=== PATIENT | male | born 1960 | race Caucasian/White ===

== ENCOUNTER 2023-02-13 13:36 | Inpatient (IN) | payer OTHER ==
[2023-02-13 13:55] VITALS: BMI 39.2
[2023-02-13] MEDS ORDERED: BENZOCAINE/MENTHOL (CHLORASEPTIC ) LOZENGE MM PRN (16:49)
[2023-02-13] MEDS ORDERED: ONDANSETRON *ODT* 4 MG TABLET SL PRN (16:49)
[2023-02-13] MEDS ORDERED: DICYCLOMINE HCL 10 MG CAPSULE PO PRN (16:49)
[2023-02-13] MEDS ORDERED: guaiFENesin 600 MG TABLET.ER (FP) PO PRN (16:49)
[2023-02-13] MEDS ORDERED: BISMUTH SUBSALICYLATE 524 MG/30 ML PO PRN (16:49)
[2023-02-13] MEDS ORDERED: MAG HYDROX/AL HYDROX/SIMETH 30 ML UNIT-DOSE CUP PO PRN (16:49)
[2023-02-13] MEDS ORDERED: IBUPROFEN 600 MG TABLET (FP) PO PRN (16:49)
[2023-02-13] MEDS ORDERED: POLYETHYLENE GLYCOL (HEALTHYLAX) 3350 17 GM PACKET PO PRN (16:49)
[2023-02-13] MEDS ORDERED: LOPERAMIDE HCL 2 MG CAPSULE PO PRN (16:49)
[2023-02-13] MEDS ORDERED: IBUPROFEN 400 MG TABLET (FP) PO PRN (16:49)
[2023-02-13] MEDS ORDERED: MAGNESIUM HYDROX 2400MG/30ML ORAL SUSPENSION 30 ML CUP PO PRN (16:49)
[2023-02-13] MEDS ORDERED: BENZONATATE 200 MG CAPSULE PO PRN (16:49)
[2023-02-13] MEDS ORDERED: P-EPHED 60MG/TRIPROLIDI 2.5MG TABLET PO PRN (16:49)
[2023-02-13] MEDS ORDERED: MELATONIN 5 MG TABLETS PO SCH (22:00)
[2023-02-13] MEDS: ATORVASTATIN CA 80 MG TABLET (FP) PO SCH (22:26)
[2023-02-13] MEDS: THIAMINE HCL 100 MG TABLET (FP) PO SCH (22:26)
[2023-02-13] MEDS: CARVEDILOL 6.25 MG TABLET (FP) PO SCH (22:26)
[2023-02-13] MEDS: RANOLAZINE E.R. 500 MG TABLET (FP) PO SCH (23:33)
[2023-02-14] MEDS: hydrOXYzine PAMOATE 25 MG CAPSULE (FP) PO PRN ×2 (05:24→22:22)
[2023-02-14] MEDS ORDERED: methaDONE HCL 40 MG DISPERSABLE TABLET PO SCH (07:30)
[2023-02-14] MEDS: methaDONE 80 MG, methaDONE 20 MG PO SCH (07:54)
[2023-02-14] MEDS ORDERED: diazePAM 5 MG TABLET PO PRN ×2 (09:27→09:30)
[2023-02-14] MEDS: diazePAM 5 MG TABLET PO SCH ×3 (10:29→22:24)
[2023-02-14] MEDS: PRENATAL VITAMINS W/ FOLIC ACID TABLET (FP) PO SCH (10:30)
[2023-02-14] MEDS: amLODIPine BESYLATE 10 MG TABLET (FP) PO SCH (10:30)
[2023-02-14] MEDS: CLOPIDOGREL BISULFATE 75 MG TABLET (FP) PO SCH (10:30)
[2023-02-14] MEDS: RANOLAZINE E.R. 500 MG TABLET (FP) PO SCH ×2 (10:30→22:21)
[2023-02-14] MEDS: ISOSORBIDE MONONITRATE 60 MG TAB.SR.24H (FP) PO SCH (10:30)
[2023-02-14] MEDS: ASPIRIN COATED 81 MG TABLET.EC PO SCH (10:30)
[2023-02-14] MEDS: SERTRALINE HCL 50 MG TABLET (FP) PO SCH (10:30)
[2023-02-14] MEDS: CARVEDILOL 6.25 MG TABLET (FP) PO SCH ×2 (10:30→22:24)
[2023-02-14] MEDS: EZETIMIBE 10 MG TABLET (FP) PO SCH (11:01)
[2023-02-14 11:32] LABS: MCH 30.5 pg (25.7-33.7); MCHC 33.2 g/dl (32.0-35.9); MEAN CELL VOLUME 91.8 fl (80-96); MEAN PLT VOLUME 8.8 fl (7.5-11.1); PLATELET COUNT 222 10^3/uL (134-434); RBC 3.92 M/mm3 (4.00-5.60); RDW 13.9 % (11.9-15.9); WHITE BLOOD COUNT 6.8 K/mm3 (4.0-10.0)
[2023-02-14 11:34] LABS: POTASSIUM 4.1 mmol/L (3.5-5.1)
[2023-02-14 11:41] LABS: CALCIUM 8.7 mg/dL (8.5-10.1)
[2023-02-14 11:42] LABS: ALBUMIN 3.5 g/dl (3.4-5.0); BLOOD UREA NITROGEN 16.7 mg/dL (7-18)
[2023-02-14 11:45] LABS: CREATININE 0.9 mg/dL (0.55-1.3)
[2023-02-14 11:46] LABS: BILIRUBIN,TOTAL 0.5 mg/dL (0.2-1); TOT PROT 6.7 g/dl (6.4-8.2)
[2023-02-14] MEDS: THIAMINE HCL 100 MG TABLET (FP) PO SCH (22:20)
[2023-02-14] MEDS: ATORVASTATIN CA 80 MG TABLET (FP) PO SCH (22:21)
[2023-02-15] MEDS: diazePAM 5 MG TABLET PO SCH ×4 (05:07→22:07)
[2023-02-15] MEDS: methaDONE 80 MG, methaDONE 20 MG PO SCH (05:09)
[2023-02-15] MEDS: ISOSORBIDE MONONITRATE 60 MG TAB.SR.24H (FP) PO SCH (10:03)
[2023-02-15] MEDS: CARVEDILOL 6.25 MG TABLET (FP) PO SCH ×2 (10:03→22:07)
[2023-02-15] MEDS: ASPIRIN COATED 81 MG TABLET.EC PO SCH (10:03)
[2023-02-15] MEDS: amLODIPine BESYLATE 10 MG TABLET (FP) PO SCH (10:03)
[2023-02-15] MEDS: CLOPIDOGREL BISULFATE 75 MG TABLET (FP) PO SCH (10:03)
[2023-02-15] MEDS: SERTRALINE HCL 50 MG TABLET (FP) PO SCH (10:03)
[2023-02-15] MEDS: PRENATAL VITAMINS W/ FOLIC ACID TABLET (FP) PO SCH (10:03)
[2023-02-15] MEDS: RANOLAZINE E.R. 500 MG TABLET (FP) PO SCH ×2 (10:04→22:07)
[2023-02-15] MEDS: EZETIMIBE 10 MG TABLET (FP) PO SCH (10:04)
[2023-02-15] MEDS: hydrOXYzine PAMOATE 25 MG CAPSULE (FP) PO PRN (13:20)
[2023-02-15] MEDS: ATORVASTATIN CA 80 MG TABLET (FP) PO SCH (22:07)
[2023-02-15] MEDS: SUVOREXANT 10 MG TABLET PO PRN (22:08)
[2023-02-16] MEDS: THIAMINE HCL 100 MG TABLET (FP) PO SCH ×2 (00:06→22:29)
[2023-02-16] MEDS: methaDONE 80 MG, methaDONE 20 MG PO SCH (05:15)
[2023-02-16] MEDS: diazePAM 5 MG TABLET PO SCH ×3 (05:17→22:29)
[2023-02-16] MEDS: ASPIRIN COATED 81 MG TABLET.EC PO SCH (10:18)
[2023-02-16] MEDS: CLOPIDOGREL BISULFATE 75 MG TABLET (FP) PO SCH (10:18)
[2023-02-16] MEDS: amLODIPine BESYLATE 10 MG TABLET (FP) PO SCH (10:18)
[2023-02-16] MEDS: SERTRALINE HCL 50 MG TABLET (FP) PO SCH (10:18)
[2023-02-16] MEDS: PRENATAL VITAMINS W/ FOLIC ACID TABLET (FP) PO SCH (10:18)
[2023-02-16] MEDS: CARVEDILOL 6.25 MG TABLET (FP) PO SCH ×2 (10:18→22:29)
[2023-02-16] MEDS: RANOLAZINE E.R. 500 MG TABLET (FP) PO SCH ×2 (10:19→22:30)
[2023-02-16] MEDS: hydrOXYzine PAMOATE 25 MG CAPSULE (FP) PO PRN (10:19)
[2023-02-16] MEDS: ISOSORBIDE MONONITRATE 60 MG TAB.SR.24H (FP) PO SCH (10:20)
[2023-02-16] MEDS: EZETIMIBE 10 MG TABLET (FP) PO SCH (10:21)
[2023-02-16] MEDS: ACETAMINOPHEN 325 MG TABLET (FP) PO PRN (17:16)
[2023-02-16] MEDS: ATORVASTATIN CA 80 MG TABLET (FP) PO SCH (22:29)
[2023-02-16] MEDS: SUVOREXANT 10 MG TABLET PO PRN (22:30)
[2023-02-17] MEDS: ACETAMINOPHEN 325 MG TABLET (FP) PO PRN (02:35)
[2023-02-17] MEDS: diazePAM 5 MG TABLET PO SCH ×2 (05:02→17:05)
[2023-02-17] MEDS: methaDONE 80 MG, methaDONE 20 MG PO SCH (05:03)
[2023-02-17] MEDS: SERTRALINE HCL 50 MG TABLET (FP) PO SCH (10:26)
[2023-02-17] MEDS: amLODIPine BESYLATE 10 MG TABLET (FP) PO SCH (10:26)
[2023-02-17] MEDS: CARVEDILOL 6.25 MG TABLET (FP) PO SCH ×2 (10:26→22:58)
[2023-02-17] MEDS: CLOPIDOGREL BISULFATE 75 MG TABLET (FP) PO SCH (10:26)
[2023-02-17] MEDS: hydrOXYzine PAMOATE 25 MG CAPSULE (FP) PO PRN (10:26)
[2023-02-17] MEDS: ASPIRIN COATED 81 MG TABLET.EC PO SCH (10:26)
[2023-02-17] MEDS: ISOSORBIDE MONONITRATE 60 MG TAB.SR.24H (FP) PO SCH (10:27)
[2023-02-17] MEDS: EZETIMIBE 10 MG TABLET (FP) PO SCH (10:27)
[2023-02-17] MEDS: RANOLAZINE E.R. 500 MG TABLET (FP) PO SCH ×2 (10:28→22:12)
[2023-02-17] MEDS: PRENATAL VITAMINS W/ FOLIC ACID TABLET (FP) PO SCH (10:28)
[2023-02-17] MEDS: ATORVASTATIN CA 80 MG TABLET (FP) PO SCH (22:11)
[2023-02-17] MEDS: THIAMINE HCL 100 MG TABLET (FP) PO SCH (22:12)
[2023-02-18] MEDS: hydrOXYzine PAMOATE 25 MG CAPSULE (FP) PO PRN (05:10)
[2023-02-18] MEDS: methaDONE 80 MG, methaDONE 20 MG PO SCH (05:10)
[2023-02-18] MEDS ORDERED: diazePAM 5 MG TABLET PO ONE (06:00)
[2023-02-18] MEDS: PRENATAL VITAMINS W/ FOLIC ACID TABLET (FP) PO SCH (10:25)
[2023-02-18] MEDS: RANOLAZINE E.R. 500 MG TABLET (FP) PO SCH (10:26)
[2023-02-18] MEDS: amLODIPine BESYLATE 10 MG TABLET (FP) PO SCH (10:26)
[2023-02-18] MEDS: CLOPIDOGREL BISULFATE 75 MG TABLET (FP) PO SCH (10:26)
[2023-02-18] MEDS: SERTRALINE HCL 50 MG TABLET (FP) PO SCH (10:26)
[2023-02-18] MEDS: EZETIMIBE 10 MG TABLET (FP) PO SCH (10:26)
[2023-02-18] MEDS: ASPIRIN COATED 81 MG TABLET.EC PO SCH (10:26)
[2023-02-18] MEDS: ISOSORBIDE MONONITRATE 60 MG TAB.SR.24H (FP) PO SCH (10:27)
[2023-02-18] MEDS: CARVEDILOL 6.25 MG TABLET (FP) PO SCH (10:27)
[2023-02-18 17:19] VITALS: BP 142/75; PULSE 63; RESP 16; TEMP 97.8
== END 2023-02-18 17:42 | disposition other institution (70) | DRG 773 ==
LOC: YASAS 13:36 → Y6N 17:43
PROVIDERS: ADMIT Allergy & Immunology; ATTEND Surgery
PROC: HZ2ZZZZ Detoxification Services for Substance Abuse Treatment (ICD-10-PCS; principal; 2023-02-13)
DX: F10.230 Alcohol dependence with withdrawal, uncomplicated (principal); F13.230 Sedative, hypnotic or anxiolytic dependence with withdrawal, uncomplicated; F11.20 Opioid dependence, uncomplicated; F43.10 Post-traumatic stress disorder, unspecified; F31.9 Bipolar disorder, unspecified; F19.982 Other psychoactive substance use, unspecified with psychoactive substance-induced sleep disorder; F19.980 Other psychoactive substance use, unspecified with psychoactive substance-induced anxiety disorder; I10 Essential (primary) hypertension; I25.10 Atherosclerotic heart disease of native coronary artery without angina pectoris; I25.2 Old myocardial infarction; E78.5 Hyperlipidemia, unspecified; E66.9 Obesity, unspecified; Z68.39 Body mass index [BMI] 39.0-39.9, adult; Z87.891 Personal history of nicotine dependence; Z86.69 Personal history of other diseases of the nervous system and sense organs; Z95.1 Presence of aortocoronary bypass graft
CPT/HCPCS: 36415; 80053; 80305; 83036; 85027; 86780; 87635; 93005; 93010

== ENCOUNTER 2023-02-18 17:54 | Inpatient (IN) | payer OTHER ==
[2023-02-18] MEDS ORDERED: MAG HYDROX/AL HYDROX/SIMETH 30 ML UNIT-DOSE CUP PO PRN (19:24)
[2023-02-18] MEDS ORDERED: NICOTINE 10 MG CARTRIDGE (INHALER) IH PRN (19:24)
[2023-02-18] MEDS ORDERED: NALOXONE HCL 0.4 MG/ML VIAL IVPUSH PRN (19:24)
[2023-02-18] MEDS ORDERED: AMMONIUM LACTATE 12% LOTION 225 GM BOTTLE TP PRN (19:24)
[2023-02-18] MEDS ORDERED: IBUPROFEN 400 MG TABLET (FP) PO PRN (19:24)
[2023-02-18] MEDS ORDERED: POLYETHYLENE GLYCOL (HEALTHYLAX) 3350 17 GM PACKET PO PRN (19:24)
[2023-02-18] MEDS ORDERED: guaiFENesin 600 MG TABLET.ER (FP) PO PRN (19:24)
[2023-02-18] MEDS ORDERED: IBUPROFEN 600 MG TABLET (FP) PO PRN (19:24)
[2023-02-18] MEDS ORDERED: MAGNESIUM HYDROX 2400MG/30ML ORAL SUSPENSION 30 ML CUP PO PRN (19:24)
[2023-02-18] MEDS ORDERED: ACETAMINOPHEN 325 MG TABLET (FP) PO PRN (19:24)
[2023-02-18] MEDS ORDERED: NALOXONE HCL (KLOXXADO) 8 MG SPRAY NS PRN (19:24)
[2023-02-18] MEDS ORDERED: BENZONATATE 200 MG CAPSULE PO PRN (19:24)
[2023-02-18] MEDS ORDERED: LOPERAMIDE HCL 2 MG CAPSULE PO PRN (19:24)
[2023-02-18] MEDS ORDERED: BENZOCAINE/MENTHOL (CHLORASEPTIC ) LOZENGE MM PRN (19:24)
[2023-02-18] MEDS ORDERED: COLLOIDAL OATMEAL 1 BAR EACH TP PRN (19:24)
[2023-02-18] MEDS ORDERED: METHOCARBAMOL 500 MG TABLET PO PRN (19:24)
[2023-02-18] MEDS: MELATONIN 5 MG TABLETS PO SCH (21:21)
[2023-02-18] MEDS: THIAMINE HCL 100 MG TABLET (FP) PO SCH (21:21)
[2023-02-18] MEDS: CARVEDILOL 6.25 MG TABLET (FP) PO SCH (21:21)
[2023-02-18] MEDS: ATORVASTATIN CA 40 MG TABLET (FP) PO SCH (21:21)
[2023-02-19] MEDS: methaDONE 80 MG, methaDONE 20 MG PO SCH (05:50)
[2023-02-19] MEDS ORDERED: methaDONE HCL 40 MG DISPERSABLE TABLET PO SCH (06:00)
[2023-02-19] MEDS ORDERED: cloNIDine HCL 0.1 MG TABLET PO ONE (07:30)
[2023-02-19] MEDS: PRENATAL VITAMINS W/ FOLIC ACID TABLET (FP) PO SCH (10:01)
[2023-02-19] MEDS: CARVEDILOL 6.25 MG TABLET (FP) PO SCH ×2 (10:02→21:13)
[2023-02-19] MEDS: ASPIRIN COATED 81 MG TABLET.EC PO SCH (10:02)
[2023-02-19] MEDS: amLODIPine BESYLATE 10 MG TABLET (FP) PO SCH (10:02)
[2023-02-19] MEDS: EZETIMIBE 10 MG TABLET (FP) PO SCH (10:03)
[2023-02-19] MEDS: ISOSORBIDE MONONITRATE 60 MG TAB.SR.24H (FP) PO SCH (10:04)
[2023-02-19] MEDS ORDERED: SERTRALINE HCL 50 MG TABLET (FP) PO SCH (12:45)
[2023-02-19] MEDS ORDERED: CLOPIDOGREL BISULFATE 75 MG PO SCH (12:45)
[2023-02-19] MEDS: RANOLAZINE E.R. 500 MG TABLET (FP) PO SCH ×2 (14:07→21:12)
[2023-02-19] MEDS: ATORVASTATIN CA 40 MG TABLET (FP) PO SCH (21:13)
[2023-02-19] MEDS: THIAMINE HCL 100 MG TABLET (FP) PO SCH (21:13)
[2023-02-19] MEDS: MELATONIN 5 MG TABLETS PO SCH (21:13)
[2023-02-20] MEDS: methaDONE 80 MG, methaDONE 20 MG PO SCH (05:02)
[2023-02-20] MEDS: ASPIRIN COATED 81 MG TABLET.EC PO SCH (09:46)
[2023-02-20] MEDS: PRENATAL VITAMINS W/ FOLIC ACID TABLET (FP) PO SCH (09:46)
[2023-02-20] MEDS: SERTRALINE HCL 50 MG TABLET (FP) PO SCH (09:47)
[2023-02-20] MEDS: RANOLAZINE E.R. 500 MG TABLET (FP) PO SCH ×2 (09:47→21:32)
[2023-02-20] MEDS: CLOPIDOGREL BISULFATE 75 MG TABLET (FP) PO SCH (09:47)
[2023-02-20] MEDS: amLODIPine BESYLATE 10 MG TABLET (FP) PO SCH (09:47)
[2023-02-20] MEDS: CARVEDILOL 6.25 MG TABLET (FP) PO SCH ×2 (09:47→21:32)
[2023-02-20] MEDS: ISOSORBIDE MONONITRATE 60 MG TAB.SR.24H (FP) PO SCH (09:48)
[2023-02-20] MEDS: EZETIMIBE 10 MG TABLET (FP) PO SCH (09:48)
[2023-02-20] MEDS: ATORVASTATIN CA 40 MG TABLET (FP) PO SCH (21:32)
[2023-02-20] MEDS: THIAMINE HCL 100 MG TABLET (FP) PO SCH (21:32)
[2023-02-20] MEDS: SUVOREXANT 10 MG TABLET PO PRN (21:32)
[2023-02-21] MEDS: methaDONE 80 MG, methaDONE 20 MG PO SCH (06:10)
[2023-02-21] MEDS: amLODIPine BESYLATE 10 MG TABLET (FP) PO SCH (09:56)
[2023-02-21] MEDS: CARVEDILOL 6.25 MG TABLET (FP) PO SCH ×2 (09:56→21:09)
[2023-02-21] MEDS: ASPIRIN COATED 81 MG TABLET.EC PO SCH (09:56)
[2023-02-21] MEDS: PRENATAL VITAMINS W/ FOLIC ACID TABLET (FP) PO SCH (09:57)
[2023-02-21] MEDS: SERTRALINE HCL 50 MG TABLET (FP) PO SCH (09:57)
[2023-02-21] MEDS: CLOPIDOGREL BISULFATE 75 MG TABLET (FP) PO SCH (09:57)
[2023-02-21] MEDS: EZETIMIBE 10 MG TABLET (FP) PO SCH (09:58)
[2023-02-21] MEDS: RANOLAZINE E.R. 500 MG TABLET (FP) PO SCH ×2 (09:58→21:08)
[2023-02-21] MEDS: ISOSORBIDE MONONITRATE 60 MG TAB.SR.24H (FP) PO SCH (09:58)
[2023-02-21] MEDS: ATORVASTATIN CA 40 MG TABLET (FP) PO SCH (21:08)
[2023-02-21] MEDS: SUVOREXANT 10 MG TABLET PO PRN (21:09)
[2023-02-21] MEDS: THIAMINE HCL 100 MG TABLET (FP) PO SCH (21:09)
[2023-02-22] MEDS: methaDONE 80 MG, methaDONE 20 MG PO SCH (05:58)
[2023-02-22] MEDS: amLODIPine BESYLATE 10 MG TABLET (FP) PO SCH (09:53)
[2023-02-22] MEDS: CARVEDILOL 6.25 MG TABLET (FP) PO SCH ×2 (09:53→21:19)
[2023-02-22] MEDS: ASPIRIN COATED 81 MG TABLET.EC PO SCH (09:53)
[2023-02-22] MEDS: SERTRALINE HCL 50 MG TABLET (FP) PO SCH (09:53)
[2023-02-22] MEDS: CLOPIDOGREL BISULFATE 75 MG TABLET (FP) PO SCH (09:53)
[2023-02-22] MEDS: PRENATAL VITAMINS W/ FOLIC ACID TABLET (FP) PO SCH (09:53)
[2023-02-22] MEDS: EZETIMIBE 10 MG TABLET (FP) PO SCH (09:54)
[2023-02-22] MEDS: RANOLAZINE E.R. 500 MG TABLET (FP) PO SCH ×2 (09:54→21:19)
[2023-02-22] MEDS: ISOSORBIDE MONONITRATE 60 MG TAB.SR.24H (FP) PO SCH (09:55)
[2023-02-22] MEDS: SUVOREXANT 10 MG TABLET PO PRN (21:19)
[2023-02-22] MEDS: ATORVASTATIN CA 40 MG TABLET (FP) PO SCH (21:19)
[2023-02-22] MEDS: THIAMINE HCL 100 MG TABLET (FP) PO SCH (21:19)
[2023-02-23] MEDS: methaDONE 80 MG, methaDONE 20 MG PO SCH (05:39)
[2023-02-23] MEDS: ASPIRIN COATED 81 MG TABLET.EC PO SCH (09:50)
[2023-02-23] MEDS: amLODIPine BESYLATE 10 MG TABLET (FP) PO SCH (09:51)
[2023-02-23] MEDS: CARVEDILOL 6.25 MG TABLET (FP) PO SCH ×2 (09:51→21:19)
[2023-02-23] MEDS: CLOPIDOGREL BISULFATE 75 MG TABLET (FP) PO SCH (09:51)
[2023-02-23] MEDS: EZETIMIBE 10 MG TABLET (FP) PO SCH (09:51)
[2023-02-23] MEDS: SERTRALINE HCL 50 MG TABLET (FP) PO SCH (09:51)
[2023-02-23] MEDS: ISOSORBIDE MONONITRATE 60 MG TAB.SR.24H (FP) PO SCH (09:51)
[2023-02-23] MEDS: PRENATAL VITAMINS W/ FOLIC ACID TABLET (FP) PO SCH (09:52)
[2023-02-23] MEDS: RANOLAZINE E.R. 500 MG TABLET (FP) PO SCH ×2 (09:52→21:19)
[2023-02-23] MEDS: SUVOREXANT 10 MG TABLET PO PRN (21:18)
[2023-02-23] MEDS: THIAMINE HCL 100 MG TABLET (FP) PO SCH (21:19)
[2023-02-23] MEDS: ATORVASTATIN CA 40 MG TABLET (FP) PO SCH (21:19)
[2023-02-24] MEDS: methaDONE 80 MG, methaDONE 20 MG PO SCH (06:39)
[2023-02-24] MEDS: ASPIRIN COATED 81 MG TABLET.EC PO SCH (09:56)
[2023-02-24] MEDS: CLOPIDOGREL BISULFATE 75 MG TABLET (FP) PO SCH (09:56)
[2023-02-24] MEDS: SERTRALINE HCL 50 MG TABLET (FP) PO SCH (09:56)
[2023-02-24] MEDS: amLODIPine BESYLATE 10 MG TABLET (FP) PO SCH (09:57)
[2023-02-24] MEDS: CARVEDILOL 6.25 MG TABLET (FP) PO SCH ×2 (09:57→21:23)
[2023-02-24] MEDS: ISOSORBIDE MONONITRATE 60 MG TAB.SR.24H (FP) PO SCH (09:58)
[2023-02-24] MEDS: PRENATAL VITAMINS W/ FOLIC ACID TABLET (FP) PO SCH (09:58)
[2023-02-24] MEDS: RANOLAZINE E.R. 500 MG TABLET (FP) PO SCH ×2 (09:58→21:23)
[2023-02-24] MEDS: EZETIMIBE 10 MG TABLET (FP) PO SCH (10:00)
[2023-02-24] MEDS: ATORVASTATIN CA 40 MG TABLET (FP) PO SCH (21:23)
[2023-02-24] MEDS: THIAMINE HCL 100 MG TABLET (FP) PO SCH (21:24)
[2023-02-24] MEDS: SUVOREXANT 10 MG TABLET PO PRN (21:24)
[2023-02-25] MEDS: methaDONE 80 MG, methaDONE 20 MG PO SCH (06:08)
[2023-02-25] MEDS: SERTRALINE HCL 50 MG TABLET (FP) PO SCH (10:04)
[2023-02-25] MEDS: CLOPIDOGREL BISULFATE 75 MG TABLET (FP) PO SCH (10:04)
[2023-02-25] MEDS: PRENATAL VITAMINS W/ FOLIC ACID TABLET (FP) PO SCH (10:04)
[2023-02-25] MEDS: CARVEDILOL 6.25 MG TABLET (FP) PO SCH ×2 (10:05→21:21)
[2023-02-25] MEDS: ASPIRIN COATED 81 MG TABLET.EC PO SCH (10:05)
[2023-02-25] MEDS: amLODIPine BESYLATE 10 MG TABLET (FP) PO SCH (10:05)
[2023-02-25] MEDS: RANOLAZINE E.R. 500 MG TABLET (FP) PO SCH ×2 (10:06→21:21)
[2023-02-25] MEDS: EZETIMIBE 10 MG TABLET (FP) PO SCH (10:07)
[2023-02-25] MEDS: ISOSORBIDE MONONITRATE 60 MG TAB.SR.24H (FP) PO SCH (10:07)
[2023-02-25] MEDS: ATORVASTATIN CA 40 MG TABLET (FP) PO SCH (21:20)
[2023-02-25] MEDS: THIAMINE HCL 100 MG TABLET (FP) PO SCH (21:20)
[2023-02-25] MEDS: SUVOREXANT 10 MG TABLET PO PRN (21:22)
[2023-02-26] MEDS ORDERED: methaDONE HCL 10 MG TABLET PO SCH (06:00)
[2023-02-26] MEDS: methaDONE 80 MG, methaDONE 20 MG PO SCH (06:14)
[2023-02-26] MEDS: SERTRALINE HCL 50 MG TABLET (FP) PO SCH (10:06)
[2023-02-26] MEDS: PRENATAL VITAMINS W/ FOLIC ACID TABLET (FP) PO SCH (10:06)
[2023-02-26] MEDS: CLOPIDOGREL BISULFATE 75 MG TABLET (FP) PO SCH (10:06)
[2023-02-26] MEDS: amLODIPine BESYLATE 10 MG TABLET (FP) PO SCH (10:06)
[2023-02-26] MEDS: RANOLAZINE E.R. 500 MG TABLET (FP) PO SCH ×2 (10:06→21:22)
[2023-02-26] MEDS: CARVEDILOL 6.25 MG TABLET (FP) PO SCH ×2 (10:06→21:22)
[2023-02-26] MEDS: ISOSORBIDE MONONITRATE 60 MG TAB.SR.24H (FP) PO SCH (10:06)
[2023-02-26] MEDS: ASPIRIN COATED 81 MG TABLET.EC PO SCH (10:06)
[2023-02-26] MEDS: EZETIMIBE 10 MG TABLET (FP) PO SCH (10:07)
[2023-02-26] MEDS: ATORVASTATIN CA 40 MG TABLET (FP) PO SCH (21:22)
[2023-02-26] MEDS: SUVOREXANT 10 MG TABLET PO PRN (21:22)
[2023-02-26] MEDS: THIAMINE HCL 100 MG TABLET (FP) PO SCH (21:22)
[2023-02-27] MEDS: methaDONE 80 MG, methaDONE 20 MG PO SCH (06:57)
[2023-02-27] MEDS: ASPIRIN COATED 81 MG TABLET.EC PO SCH (09:57)
[2023-02-27] MEDS: ISOSORBIDE MONONITRATE 60 MG TAB.SR.24H (FP) PO SCH (09:57)
[2023-02-27] MEDS: SERTRALINE HCL 50 MG TABLET (FP) PO SCH (09:57)
[2023-02-27] MEDS: CLOPIDOGREL BISULFATE 75 MG TABLET (FP) PO SCH (09:58)
[2023-02-27] MEDS: RANOLAZINE E.R. 500 MG TABLET (FP) PO SCH ×2 (09:58→21:25)
[2023-02-27] MEDS: amLODIPine BESYLATE 10 MG TABLET (FP) PO SCH (09:58)
[2023-02-27] MEDS: PRENATAL VITAMINS W/ FOLIC ACID TABLET (FP) PO SCH (09:58)
[2023-02-27] MEDS: CARVEDILOL 6.25 MG TABLET (FP) PO SCH ×2 (09:58→21:25)
[2023-02-27] MEDS: EZETIMIBE 10 MG TABLET (FP) PO SCH (10:40)
[2023-02-27] MEDS: THIAMINE HCL 100 MG TABLET (FP) PO SCH (21:25)
[2023-02-27] MEDS: ATORVASTATIN CA 40 MG TABLET (FP) PO SCH (21:25)
[2023-02-28] MEDS: methaDONE 80 MG, methaDONE 20 MG PO SCH (06:11)
[2023-02-28 08:06] VITALS: RESP 18
[2023-02-28] MEDS: PRENATAL VITAMINS W/ FOLIC ACID TABLET (FP) PO SCH (10:04)
[2023-02-28] MEDS: ASPIRIN COATED 81 MG TABLET.EC PO SCH (10:05)
[2023-02-28] MEDS: SERTRALINE HCL 50 MG TABLET (FP) PO SCH (10:05)
[2023-02-28] MEDS: amLODIPine BESYLATE 10 MG TABLET (FP) PO SCH (10:05)
[2023-02-28] MEDS: CARVEDILOL 6.25 MG TABLET (FP) PO SCH ×2 (10:05→21:25)
[2023-02-28] MEDS: CLOPIDOGREL BISULFATE 75 MG TABLET (FP) PO SCH (10:05)
[2023-02-28] MEDS: EZETIMIBE 10 MG TABLET (FP) PO SCH (10:06)
[2023-02-28] MEDS: ISOSORBIDE MONONITRATE 60 MG TAB.SR.24H (FP) PO SCH (10:07)
[2023-02-28] MEDS: RANOLAZINE E.R. 500 MG TABLET (FP) PO SCH ×2 (10:08→21:25)
[2023-02-28] MEDS: THIAMINE HCL 100 MG TABLET (FP) PO SCH (21:25)
[2023-02-28] MEDS: ATORVASTATIN CA 40 MG TABLET (FP) PO SCH (21:25)
[2023-03-01] MEDS: methaDONE 80 MG, methaDONE 20 MG PO SCH (06:23)
[2023-03-01] MEDS: ASPIRIN COATED 81 MG TABLET.EC PO SCH (10:00)
[2023-03-01] MEDS: SERTRALINE HCL 50 MG TABLET (FP) PO SCH (10:00)
[2023-03-01] MEDS: PRENATAL VITAMINS W/ FOLIC ACID TABLET (FP) PO SCH (10:00)
[2023-03-01] MEDS: CARVEDILOL 6.25 MG TABLET (FP) PO SCH ×2 (10:00→21:39)
[2023-03-01] MEDS: CLOPIDOGREL BISULFATE 75 MG TABLET (FP) PO SCH (10:01)
[2023-03-01] MEDS: amLODIPine BESYLATE 10 MG TABLET (FP) PO SCH (10:01)
[2023-03-01] MEDS: EZETIMIBE 10 MG TABLET (FP) PO SCH (10:02)
[2023-03-01] MEDS: RANOLAZINE E.R. 500 MG TABLET (FP) PO SCH ×2 (10:02→21:39)
[2023-03-01] MEDS: ISOSORBIDE MONONITRATE 60 MG TAB.SR.24H (FP) PO SCH (10:05)
[2023-03-01] MEDS: ATORVASTATIN CA 40 MG TABLET (FP) PO SCH (21:39)
[2023-03-01] MEDS: THIAMINE HCL 100 MG TABLET (FP) PO SCH (21:40)
[2023-03-01] MEDS: SUVOREXANT 10 MG TABLET PO PRN (21:40)
[2023-03-02] MEDS: methaDONE 80 MG, methaDONE 20 MG PO SCH (06:20)
[2023-03-02] MEDS: SERTRALINE HCL 50 MG TABLET (FP) PO SCH (10:10)
[2023-03-02] MEDS: amLODIPine BESYLATE 10 MG TABLET (FP) PO SCH (10:10)
[2023-03-02] MEDS: CLOPIDOGREL BISULFATE 75 MG TABLET (FP) PO SCH (10:10)
[2023-03-02] MEDS: CARVEDILOL 6.25 MG TABLET (FP) PO SCH ×2 (10:10→21:22)
[2023-03-02] MEDS: RANOLAZINE E.R. 500 MG TABLET (FP) PO SCH ×2 (10:11→21:22)
[2023-03-02] MEDS: EZETIMIBE 10 MG TABLET (FP) PO SCH (10:11)
[2023-03-02] MEDS: PRENATAL VITAMINS W/ FOLIC ACID TABLET (FP) PO SCH (10:11)
[2023-03-02] MEDS: ISOSORBIDE MONONITRATE 60 MG TAB.SR.24H (FP) PO SCH (10:12)
[2023-03-02] MEDS: ASPIRIN COATED 81 MG TABLET.EC PO SCH (10:13)
[2023-03-02] MEDS: THIAMINE HCL 100 MG TABLET (FP) PO SCH (21:22)
[2023-03-02] MEDS: ATORVASTATIN CA 40 MG TABLET (FP) PO SCH (21:22)
[2023-03-02] MEDS: SUVOREXANT 10 MG TABLET PO PRN (21:24)
[2023-03-03] MEDS: methaDONE 80 MG, methaDONE 20 MG PO SCH (06:03)
[2023-03-03] MEDS: EZETIMIBE 10 MG TABLET (FP) PO SCH (10:07)
[2023-03-03] MEDS: PRENATAL VITAMINS W/ FOLIC ACID TABLET (FP) PO SCH (10:08)
[2023-03-03] MEDS: CARVEDILOL 6.25 MG TABLET (FP) PO SCH ×2 (10:08→21:15)
[2023-03-03] MEDS: CLOPIDOGREL BISULFATE 75 MG TABLET (FP) PO SCH (10:08)
[2023-03-03] MEDS: RANOLAZINE E.R. 500 MG TABLET (FP) PO SCH ×2 (10:08→21:16)
[2023-03-03] MEDS: SERTRALINE HCL 50 MG TABLET (FP) PO SCH (10:08)
[2023-03-03] MEDS: ISOSORBIDE MONONITRATE 60 MG TAB.SR.24H (FP) PO SCH (10:08)
[2023-03-03] MEDS: amLODIPine BESYLATE 10 MG TABLET (FP) PO SCH (10:08)
[2023-03-03] MEDS: ASPIRIN COATED 81 MG TABLET.EC PO SCH (10:09)
[2023-03-03] MEDS ORDERED: ATORVASTATIN CA 20 MG TABLET (FP) ONE (19:08)
[2023-03-03] MEDS: THIAMINE HCL 100 MG TABLET (FP) PO SCH (21:16)
[2023-03-03] MEDS: ATORVASTATIN CA 40 MG TABLET (FP) PO SCH (21:16)
[2023-03-04] MEDS: methaDONE 80 MG, methaDONE 20 MG PO SCH (05:43)
[2023-03-04 07:07] VITALS: PULSE 73; TEMP 97.9
[2023-03-04] MEDS: ASPIRIN COATED 81 MG TABLET.EC PO SCH (09:41)
[2023-03-04] MEDS: CLOPIDOGREL BISULFATE 75 MG TABLET (FP) PO SCH (09:41)
[2023-03-04] MEDS: CARVEDILOL 6.25 MG TABLET (FP) PO SCH (09:41)
[2023-03-04] MEDS: RANOLAZINE E.R. 500 MG TABLET (FP) PO SCH (09:41)
[2023-03-04] MEDS: PRENATAL VITAMINS W/ FOLIC ACID TABLET (FP) PO SCH (09:41)
[2023-03-04] MEDS: SERTRALINE HCL 50 MG TABLET (FP) PO SCH (09:41)
[2023-03-04] MEDS: amLODIPine BESYLATE 10 MG TABLET (FP) PO SCH (09:41)
[2023-03-04] MEDS: EZETIMIBE 10 MG TABLET (FP) PO SCH (09:42)
[2023-03-04] MEDS: ISOSORBIDE MONONITRATE 60 MG TAB.SR.24H (FP) PO SCH (09:43)
[2023-03-04 10:54] VITALS: BP 168/81
== END 2023-03-04 09:57 | disposition home or self-care (01) | DRG 772 ==
LOC: YASAS 17:54 → Y5N 17:55
PROVIDERS: ADMIT Allergy & Immunology; ATTEND Psychiatry & Neurology Pain Medicine
PROC: HZ42ZZZ Group Counseling for Substance Abuse Treatment, Cognitive-Behavioral (ICD-10-PCS; principal; 2023-02-18)
DX: F10.20 Alcohol dependence, uncomplicated (principal); F11.20 Opioid dependence, uncomplicated; F13.20 Sedative, hypnotic or anxiolytic dependence, uncomplicated; F31.9 Bipolar disorder, unspecified; F19.280 Other psychoactive substance dependence with psychoactive substance-induced anxiety disorder; F19.282 Other psychoactive substance dependence with psychoactive substance-induced sleep disorder; I25.10 Atherosclerotic heart disease of native coronary artery without angina pectoris; I10 Essential (primary) hypertension; I25.2 Old myocardial infarction; Z95.1 Presence of aortocoronary bypass graft; Z99.89 Dependence on other enabling machines and devices; Z88.8 Allergy status to other drugs, medicaments and biological substances

== ENCOUNTER 2024-09-16 12:19 | Inpatient (IN) | payer OTHER ==
[2024-09-16 13:09] VITALS: BMI 38.6
[2024-09-16] MEDS ORDERED: IBUPROFEN 400 MG TABLET (FP) PO PRN (13:24)
[2024-09-16] MEDS ORDERED: BISMUTH SUBSALICYLATE 524 MG/30 ML PO PRN (13:24)
[2024-09-16] MEDS ORDERED: BENZOCAINE/MENTHOL (CHLORASEPTIC ) LOZENGE MM PRN (13:24)
[2024-09-16] MEDS ORDERED: METHOCARBAMOL 500 MG TABLET PO PRN (13:24)
[2024-09-16] MEDS ORDERED: MAG HYDROX/AL HYDROX/SIMETH 30 ML UNIT-DOSE CUP PO PRN (13:24)
[2024-09-16] MEDS ORDERED: hydrOXYzine PAMOATE 25 MG CAPSULE (FP) PO PRN (13:24)
[2024-09-16] MEDS ORDERED: BENZONATATE 200 MG CAPSULE PO PRN (13:24)
[2024-09-16] MEDS ORDERED: POLYETHYLENE GLYCOL (HEALTHYLAX) 3350 17 GM PACKET PO PRN (13:24)
[2024-09-16] MEDS ORDERED: ONDANSETRON *ODT* 4 MG TABLET SL PRN (13:24)
[2024-09-16] MEDS ORDERED: guaiFENesin 600 MG TABLET.ER (FP) PO PRN (13:24)
[2024-09-16] MEDS ORDERED: NALOXONE (NARCAN) HCL 4 MG/0.1 ML SPRAY NS PRN (13:24)
[2024-09-16] MEDS ORDERED: IBUPROFEN 600 MG TABLET (FP) PO PRN (13:24)
[2024-09-16] MEDS ORDERED: diazePAM 5 MG TABLET PO PRN (13:24)
[2024-09-16] MEDS ORDERED: DICYCLOMINE HCL 10 MG CAPSULE PO PRN (13:24)
[2024-09-16] MEDS ORDERED: MAGNESIUM HYDROX 2400MG/30ML ORAL SUSPENSION 30 ML CUP PO PRN (13:24)
[2024-09-16] MEDS ORDERED: LOPERAMIDE HCL 2 MG CAPSULE PO PRN (13:24)
[2024-09-16] MEDS: ACAMPROSATE CALCIUM 333 MG TABLET.DR PO SCH (14:53)
[2024-09-16] MEDS: diazePAM 5 MG TABLET PO SCH (17:27)
[2024-09-16] MEDS: ATORVASTATIN CA 80 MG TABLET (FP) PO SCH (22:03)
[2024-09-16] MEDS: THIAMINE 100 MG TABLET PO SCH (22:03)
[2024-09-16] MEDS: CARVEDILOL 6.25 MG TABLET (FP) PO SCH (22:03)
[2024-09-16] MEDS: MELATONIN 5 MG TABLETS PO SCH (22:04)
[2024-09-16] MEDS: ACETAMINOPHEN 325 MG TABLET (FP) PO PRN (22:04)
[2024-09-17] MEDS: RANOLAZINE E.R. 500 MG TABLET (FP) PO SCH (00:14)
[2024-09-17] MEDS: methaDONE HCL 40 MG DISPERSABLE TABLET PO SCH (05:37)
[2024-09-17 09:50] LABS: CHLORIDE 106 mmol/L (98-107); POTASSIUM 4.6 mmol/L (3.5-5.1); SODIUM 139 mmol/L (136-145)
[2024-09-17 09:59] LABS: HEMATOCRIT 38.5 % (35.4-49); HEMOGLOBIN 12.5 GM/dL (11.7-16.9); MCH 29.7 pg (25.7-33.7); MCHC 32.6 g/dl (32.0-35.9); MEAN CELL VOLUME 91.3 fl (80-96); MEAN PLT VOLUME 8.3 fl (7.5-11.1); PLATELET COUNT 199 10^3/uL (134-434); RBC 4.22 M/mm3 (4.00-5.60); RDW 14.6 % (11.9-15.9); WHITE BLOOD COUNT 7.2 K/mm3 (4.0-10.0)
[2024-09-17] MEDS ORDERED: CLOPIDOGREL BISULFATE 75 MG PO SCH (10:00)
[2024-09-17 10:02] LABS: ALBUMIN 3.6 g/dl (3.4-5.0); SGPT/ALT 23 U/L (13-61)
[2024-09-17 10:03] LABS: BILIRUBIN,TOTAL 0.3 mg/dL (0.2-1)
[2024-09-17 10:04] LABS: ANION GAP 5 mmol/L (4-13); CALCIUM 8.7 mg/dL (8.5-10.1); CO2 28 mmol/L (21-32); SGOT/AST 25 U/L (15-37); TOT PROT 6.7 g/dl (6.4-8.2)
[2024-09-17 10:05] LABS: ALK PHOS 64 U/L (45-117); CREATININE 0.8 mg/dL (0.55-1.3); GLUCOSE,RANDOM 123 mg/dL (74-106)
[2024-09-17] MEDS: PRENATAL VITAMINS W/ FOLIC ACID TABLET (FP) PO SCH (10:12)
[2024-09-17] MEDS: ASPIRIN COATED 81 MG TABLET.EC PO SCH (10:12)
[2024-09-17] MEDS: CLOPIDOGREL BISULFATE 75 MG TABLET (FP) PO SCH (10:13)
[2024-09-17] MEDS: amLODIPine BESYLATE 10 MG TABLET (FP) PO SCH (10:13)
[2024-09-17] MEDS: SERTRALINE HCL 50 MG TABLET (FP) PO SCH (10:16)
[2024-09-17] MEDS: ISOSORBIDE MONONITRATE 60 MG TAB.SR.24H (FP) PO SCH (10:17)
[2024-09-17] MEDS: EZETIMIBE 10 MG TABLET (FP) PO SCH (13:08)
[2024-09-17] MEDS: SUVOREXANT 10 MG TABLET PO PRN (22:14)
[2024-09-18] MEDS: diazePAM 5 MG TABLET PO SCH (05:38)
[2024-09-19] MEDS: diazePAM 5 MG TABLET PO SCH (06:17)
[2024-09-20] MEDS: diazePAM 5 MG TABLET PO ONE (05:55)
[2024-09-20 06:27] VITALS: RESP 18
[2024-09-20 08:45] VITALS: BP 153/84; PULSE 69; TEMP 97.9
== END 2024-09-20 09:43 | disposition home or self-care (01) | DRG 773 ==
LOC: YASAS 12:19 → Y6N 14:37
PROVIDERS: ADMIT Allergy & Immunology; ATTEND Allergy & Immunology
PROC: HZ2ZZZZ Detoxification Services for Substance Abuse Treatment (ICD-10-PCS; principal; 2024-09-16)
DX: F10.230 Alcohol dependence with withdrawal, uncomplicated (principal); F13.230 Sedative, hypnotic or anxiolytic dependence with withdrawal, uncomplicated; F11.10 Opioid abuse, uncomplicated; F31.9 Bipolar disorder, unspecified; F19.282 Other psychoactive substance dependence with psychoactive substance-induced sleep disorder; F43.10 Post-traumatic stress disorder, unspecified; E78.5 Hyperlipidemia, unspecified; I25.119 Atherosclerotic heart disease of native coronary artery with unspecified angina pectoris; I10 Essential (primary) hypertension; I25.2 Old myocardial infarction; B18.2 Chronic viral hepatitis C; Z87.891 Personal history of nicotine dependence; Z99.89 Dependence on other enabling machines and devices
CPT/HCPCS: 36415; 80053; 80305; 80307; 85027; 86780; 93005; 93010